=== PATIENT | female | born 1985 | race Caucasian/White ===

== ENCOUNTER 2023-08-17 22:12 | Emergency (ER) | payer OTHER ==
[2023-08-17] MEDS ORDERED: Sodium Chloride 0.9% 10 ML Syringe FLUSH PRN (22:33)
[2023-08-17] MEDS ORDERED: Famotidine 20 MG/2 ML SDV IVPUSH ONE (22:34)
[2023-08-17] MEDS ORDERED: methylPREDNISolone Sodium Succinate 125 MG/2 ML SDV IVPUSH ONE (22:34)
[2023-08-17] MEDS ORDERED: diphenhydrAMINE 50 MG/ML SDV IVPUSH ONE (22:34)
[2023-08-18] MEDS ORDERED: diphenhydrAMINE 50 MG/ML SDV IVPUSH ONE ×2 (00:06)
[2023-08-18 00:16] VITALS: BP 109/61; PULSE 61
== END 2023-08-18 00:15 | disposition home or self-care (01) ==
LOC: JD.ED 22:12
DX: L50.9 Urticaria, unspecified (principal); J45.909 Unspecified asthma, uncomplicated; Z91.018 Allergy to other foods
CPT/HCPCS: 96374; 96375; 96376; 99283; J1200; J2930; J3490; 99284

== ENCOUNTER 2023-08-18 12:28 | Emergency (ER) | payer OTHER ==
[2023-08-18] MEDS ORDERED: Cetirizine 10 MG Tab PO ONE (13:22)
[2023-08-18] MEDS ORDERED: methylPREDNISolone Sodium Succinate 40 MG/1 ML SDV IM ONE (13:22)
[2023-08-18 13:42] VITALS: BP 119/64; PULSE 60
== END 2023-08-18 13:39 | disposition home or self-care (01) ==
LOC: JD.ED 12:28
DX: L50.9 Urticaria, unspecified (principal); J45.909 Unspecified asthma, uncomplicated; Z91.048 Other nonmedicinal substance allergy status; Z79.899 Other long term (current) drug therapy
CPT/HCPCS: 96372; 99283; A9270; J2920